=== PATIENT | male | born 1980 | race Caucasian/White ===

== ENCOUNTER 2020-11-23 19:42 | Emergency (ER) | payer OTHER, SELFPAY ==
[2020-11-23 19:43] VITALS: BP 136/74; PULSE 69; RESP 18; TEMP 36.1; O2SAT 99; BMI 27.9
--- NOTE | 2020-11-23 19:55 | ED.VIS.DENTA ---
History of Present Illness Chief Complaint: Dental Informant: Patient Onset: Days Context: Sudden Onset Timing: Continuous Quality: Pain Location: Upper back molar Current Severity: Mild Maximum Severity: Moderate Worsened by: Eating or drinking something cold Relieved by: - - Nothing Associated Symptoms: Fever - Subjective fever last evening, - - Eyes jaw pain or swelling, denies facial pain or swelling. Narrative: Patient a 40-year-old male who presents with dental pain and swelling roof of his mouth . Patient complains of subjective fever last evening. He denies history rheumatic fever, heart murmur, SBE or being immune suppressed. He does not have a dentist. He denies difficulty opening closing his mouth. Denies facial pain, swelling or redness. He denies change in voice. He denies rash or skin lesion. Prior similar symptoms: No Recent Illness/Hospitalization: No - Past Medical History (1) No significant past medical history Status: Acute Past Medical History - Allergies and Home Meds Allergies/Adverse Reactions: Allergies No Known Allergies Allergy (Verified 12/23/14 19:30) Primary Care Physician: Cecilia Sharma,Out of [Primary Care Provider] - Prior records reviewed: No Surgical History: noncontributory Lives: Spouse/ Significant Other, With Family Smoking Status: Current every day smoker Alcohol: Rare Drugs: None Review of Systems General: Reports: Fever, Subjective. Denies: Chills, Malaise, Sweats Eyes: Denies: Visual changes - bilaterally, Blurred Vision - bilaterally, Diplopia ENT: Reports: - - Dental pain and swelling. Denies: Bilateral ear pain, Rhinorrhea, Sore throat Cardiovascular: Denies: Chest pain, Palpitations Respiratory: Denies: Dyspnea, Cough Gastrointestinal: Denies: Nausea, Vomiting Musculoskeletal: Denies: Myalgias, Arthralgias, Neck pain Skin: Denies: Rash Neurological: Denies: Headache, Weakness, Parasthesia Allergy: Reports: Swelling of the mouth. Denies: Uticaria, Swelling of the tongue Physical Exam Vital Signs/Narrative: Vital Signs Temp Pulse Resp BP Pulse Ox 11/23/20 19:43 96.9 F L 69 18 136/74 H 99 Inital Vital Signs reviewed: Yes General: Well nourished Head: Normocephalic, Atraumatic ENT: Moist mucous membranes, Nasal congestion, No nasal trauma, No rhinorrhea. Negative for: Sinus tenderness Mouth/Throat: Normal oral mucosa, Normal posterior oropharynx, No sublingual edema, Normal Stensen's duct, Dental abscess, Focal dental decay, Focal gum swelling, Gingivitis, Tenderness on tooth percussion, - - Decay and swelling at tooth #2 region.. Negative for: Normal inspection lips/gums, No focal abscess, Apthous ulcer, Dental trauma, Trismus Neck: Supple, No lymphadenopathy, Nontender, No JVD. Negative for: Anterior submandibular lymphadenopathy, Posterior submandibular lymphadenopathy, Anterior submental lymphadenopathy, Posterior submental lymphadenopathy Cardiovascular: Regular rate, Regular rhythm, No murmurs, Normal S1, Normal S2 Respiratory: No distress, CTA bilaterally, Chest nontender Skin: Normal color, No rash Neurological: Alert, Oriented x3, Cranial nerves II-XII grossly intact, Normal Strength, Normal Sensation Psychological: Normal affect Diagnostic/Tx/Re-eval - Medical Decision Making Dental decay down to the pulp. There is also evidence of abscess with fistula/sinus tract. Patient received first dose of Naprosyn, [place] and clindamycin. There is no evidence of facial cellulitis. He has no trismus. He was referred to Dr. Rahman since he will need the root extracted. ED Disposition - Plan for ED Patient: Disposition: Home or Assisted Living Diagnosis: Dental abscess, Dental pulp necrosis Instructions: Dental Abscess Prescriptions: Clindamycin HCl [Cleocin] 300 mg PO Q6H #28 capsule Transmission Status: Pending to [id number] Naproxen [Naprosyn] 500 mg PO BID #14 tablet Transmission Status: Pending to [id number] Hydrocodone Bitart/Apap 5-325 [[place] 5MG-325MG] 1 tablet PO Q6H PRN PRN 3 Days #10 tablet PRN Reason: Pain Transmission Status: Received by [id number] Referrals: [facility] Doctor,Out of [Primary Care Provider] - Familia Rahman DDS [STAFF PHYSICIAN] - 5-7 Days
[2020-11-23] MEDS: Naproxen 250 MG Tablet 500 MG PO (20:06)
[2020-11-23] MEDS: Clindamycin HCl 150 MG Capsule 300 MG PO (20:07)
[2020-11-23 20:08] VITALS: RESP 14
== END 2020-11-23 20:10 | disposition home or self-care (01) ==
LOC: ED 20:05
PROVIDERS: Emergency Provider Emergency Medicine
DX: K04.7 Periapical abscess without sinus (principal); K04.1 Necrosis of pulp; F17.200 Nicotine dependence, unspecified, uncomplicated
CPT/HCPCS: 99282

== ENCOUNTER 2021-01-30 12:09 | Emergency (ER) | payer OTHER, SELFPAY ==
[2021-01-30 12:10] VITALS: BP 138/84; PULSE 62; RESP 16; TEMP 36.4; O2SAT 100; BMI 28.9
--- NOTE | 2021-01-30 12:22 | EX.ED.DYSGE1 ---
HPI History of Present Illness Chief Complaint: Allergic Reaction Detail of Chief Complaint: Bilateral hand swelling and itching Informant: patient Onset/Context/Timing Onset: Yesterday Context: Gradual Onset Timing: Continuous Current Severity: Mild Maximum Severity: Mild Narrative Narrative: Gentleman used new clothes. Thinks he had allergic reaction to the material on the glove or something on them. Has developed swelling of his hands since yesterday. Prior similar symptoms: Yes PFSH PFSH Home Medications clindamycin HCl 300 mg PO Q6H #28 capsule 11/23/20 [Rx Last Taken Unknown] naproxen 500 mg PO BID #14 tablet 11/23/20 [Rx Last Taken Unknown] prednisone 40 mg PO DAILY 5 Days #10 tab 01/30/21 [Rx Last Taken Unknown] Allergy/AdvReac Type Severity Reaction Status Date / Time No Known Allergies Allergy Verified 01/30/21 12:10 Social History Smoking Status: Current every day smoker ROS ROS ED ROS Narrative Denies any recent illness. Review of Systems ROS Unobtainable: Denies due to encephalopathy Constitutional Constitutional ED: Denies fever(s) Eyes Eyes: Denies change in vision ENT ENT ED: Denies ear pain or sore throat Cardiovascular Cardiovascular: Denies chest pain Respiratory/Chest Respiratory/Chest: Denies dyspnea Gastrointestinal Gastrointestinal: Denies abdominal pain, diarrhea, nausea or vomiting Genitourinary Genitourinary ED: Denies dysuria Musculoskeletal Musculoskeletal: Denies myalgias Integumentary Reports rash Neurologic Neurologic: Denies headache(s) Psychiatric Psychiatric: Denies depression Endocrine Endocrinology: Denies polyuria Allergic/Immunologic Allergic/Immunologic ED: Denies urticaria EXAM Physical Exam Narrative Exam Narrative: Middle-aged male no acute distress vital signs stable afebrile. HEENT exam normal. Lungs are clear. Heart regular rhythm. Skin unremarkable except both hands are mildly swollen. He does have a ring on his left ring finger. It is not tight. But he cannot get it over the knuckle we tried to remove it were unsuccessful. He does not want to cut off at this time. Hands appear to be allergic reaction. The forearm wrist and upper arms are unremarkable. Const Vital Signs: 01/30/21 12:10 Temperature 97.6 F L Temperature Source Temporal Pulse Rate 62 Respiratory Rate 16 Blood Pressure 138/84 H Blood Pressure Mean 102 Pulse Ox 100 Oxygen Delivery Method Room Air Positive well nourished and well developed General Appearance ED: well developed HEENT Reports moist mucous membranes Negative for trauma or tenderness Eyes PERRL and EOMs intact bilaterally Neck no lymphadenopathy, supple and no JVD Chest Wall inspection of chest normal and palpation of chest normal Cardio regular rate, regular rhythm and no murmurs GI normal to inspection, nondistended, normoactive bowel sounds, non-tender and non-distended Palpation: soft Back/Spine no CVA tenderness Extremity Extremity Narrative: Bilateral hand swelling. General Extremety ED: Yes edema; Negative for tenderness General Extremity: edema Neuro oriented x3 and CN's II-XII intact bilaterally Sensorium / Orientation: alert Motor Exam: strength 5/5 throughout Psych mental status grossly normal Skin no rashes or lesions noted MDM MDM MDM Narrative Medical decision making narrative: Patient be treated with oral prednisone. Prescription for 5 days. First dose given in ER. He knows to get his ring taken off if it gets tight. Ice and elevate his hands. Return if worse. Discharge Plan Triage Chief Complaint: Allergic Reaction ED Provider: Pete Mcnamara Dx/Rx/DC Orders Clinical Impression: Allergic reaction Instructions: ED Allergic Reaction Local Other Prescriptions: New prednisone 20 mg tablet 40 mg PO DAILY 5 Days Qty: 10 RF: 0 No Action clindamycin HCl 300 MG capsule 300 mg PO Q6H Qty: 28 RF: 0 naproxen 500 MG tablet 500 mg PO BID Qty: 14 RF: 0 Primary Care Provider: Care Physician,No Primary Referrals: Juan Bynum MD [STAFF PHYSICIAN] - 3-5 Days if not improving NOT,DEFINED [NON-STAFF] - Activity Restrictions/Additional Instructions: Ice and elevate your hand to decrease pain and swelling. Motrin to decrease swelling. Prednisone daily for the next 5 days. You already given your first dose here for today. You will need to take again tomorrow. Have the ring cut off if it gets too tight. Disposition Disposition: Home, self care
[2021-01-30] MEDS: predniSONE 20 MG Tablet 60 MG PO (12:30)
--- NOTE | 2021-01-30 12:35 | ED.RN ---
small abrasion to posterior left ring finger. physician aware. no treatment here. home treatment discussed with pt.
== END 2021-01-30 12:35 | disposition home or self-care (01) ==
PROVIDERS: Emergency Provider Emergency Medicine
DX: T78.40XA Allergy, unspecified, initial encounter (principal); F17.200 Nicotine dependence, unspecified, uncomplicated; M79.89 Other specified soft tissue disorders
CPT/HCPCS: 99284

== ENCOUNTER 2023-09-24 16:52 | Emergency (ER) | payer OTHER, SELFPAY ==
[2023-09-24 16:53] VITALS: BP 125/79; PULSE 73; RESP 16; TEMP 36.5; O2SAT 99; BMI 25.7
[2023-09-24 17:15] LABS: Absolute Lymphocyte Count 3.47 X10^3/uL (0.83-4.51); Absolute Neutrophil Count 3.4 X10^3/uL (2.0-7.7); Basophil# 0.05 X10^3/uL; Basophil% 0.6 % (0-1); Eosinophil# 0.19 X10^3/uL; Eosinophils% 2.4 % (0-5); Hematocrit 44.4 % (40-54); Lymphocyte # 3.47 X10^3/ul (0.83-4.51); Lymphocyte % 44.7 % (19-41); Mean Corp Hgb Conc 33.8 g/dL (32-36); Mean Corpuscular Hgb 28.7 pg (27.0-32.0); Mean Corpuscular Volume 85.1 fL (80-94); Monocyte# 0.62 X10^3/uL; NRBC Flagged by Analyzer 0 % (0-5); Neutrophil # 3.42 X10^3/uL (2.7-7.7); Neutrophil % 44.2 % (47-70); Platelet Count 241 K/mm3 (150-450); RBC Distribution Width CV 12.5 % (11.6-14.6); RBC Distribution Width SD 38.5 fl (35.1-43.9); Red Blood Count 5.22 M/mm3 (4.6-6.2); White Blood Count 7.8 K/mm3 (4.4-11.0)
[2023-09-24 17:16] VITALS: BP 119/84; PULSE 60; RESP 15; O2SAT 99
--- NOTE | 2023-09-24 17:19 | ED.RN ---
NO OLD EKG
--- NOTE | 2023-09-24 17:33 | ED.VIS.CHEST ---
HPI History of Present Illness Chief Complaint: Chest Pain Detail of Chief Complaint: Accelerated heart rate intermittently for months. Informant: patient Onset/Context/Timing Onset: Today and Hours Activity at onset: gradual Timing: Intermittent Quality: Positive for Dull Location: Substernal Current Severity: Gone Maximum Severity: Mild Worsened By: Nothing Relieved By: Nothing Associated Symptoms: Positive for Acid Reflux and Palpitations; Negative for Nausea, Vomiting, Diaphoresis, Dyspnea, Cough, Fever or Lightheadedness Narrative Narrative: 42-year-old male no significant past medical or surgical history. About a month ago he had both COVID and flu around the same time. Since then he has had intermittent episodes of fluttering heart rate and accelerated heart rate. Today around noon similar episode came on. His heart rate was in the 100s. He had some mild dull chest discomfort associated with it. No prior history of DVT or PE. No leg pain or swelling. No recent travel, surgery or immobilization. No hemoptysis. No cardiac history no thyroid history. He is undergoing outpatient cardiac monitoring but as of yet they have not had any specific diagnosis. Prior Similar Symptoms: Yes Recent Illness/Hospitalization: No CVD Risk Factors: Negative for Hypertension, Diabetes or Hypercholesterolemia PE Risk Factors: Negative for Recent Travel/Surgery, Recent Immobilization, Prior DVT or PE, Cancer or OCP + Smoking + >/=35 TAD Risk Factors: Negative for Marfan's Syndrome PFSH PFSH Medical History no medical history no medical history Home Medications NK 09/24/23 [History Last Taken Unknown] Allergy/AdvReac Type Severity Reaction Status Date / Time No Known Allergies Allergy Verified 01/30/21 12:10 Surgical History no surgical history no surgical history Social History Smoking Status: Former smoker ROS ROS ED ROS Narrative Palpitations. Accelerated heart rate. Review of Systems ROS Unobtainable: Denies due to encephalopathy Constitutional Constitutional ED: Denies chills or fever(s) Eyes Eyes: Reports none ENT ENT ED: Denies ear pain or rhinorrhea Cardiovascular Cardiovascular: Reports chest pain, palpitations and racing heartbeat Respiratory/Chest Respiratory/Chest: Denies cough or dyspnea Gastrointestinal Gastrointestinal: Denies abdominal pain Genitourinary Genitourinary ED: Denies dysuria Musculoskeletal Musculoskeletal: Denies arthralgias Integumentary Denies abscess Neurologic Neurologic: Denies headache(s) or paresthesias Psychiatric Psychiatric: Denies anxiety Endocrine Endocrinology: Denies cold intolerance Hematologic/Lymphatic Hematologic/Lymphatic: Denies easy bleeding, easy bruising or lymphadenopathy Allergic/Immunologic Allergic/Immunologic ED: Denies mouth swelling, tongue swelling or urticaria EXAM Physical Exam Narrative Exam Narrative: 42-year-old male vital signs stable afebrile. Heart rate 70. Pulse ox 99% on room air no signs hypoxia. No distress. present in room. HEENT exam normal. Neck nontender. No thyromegaly. No lymphadenopathy. Lungs clear to auscultation bilaterally. Heart regular rhythm rate about 71 no murmur. Chest wall and ribs nontender. Abdomen soft nontender. Moving all 4 extremities. Calves are nontender without edema or cords. Neurologically is awake and alert with no focal motor deficit. Const Vital Signs: 09/24/23 16:53 09/24/23 17:16 09/24/23 17:16 Temperature 97.7 F L Temperature Source Temporal Pulse Rate 73 60 Respiratory Rate 16 15 Respiratory Effort Blood Pressure 125/79 H 119/84 H Blood Pressure Mean 94 95 Pulse Ox 99 99 99 Oxygen Delivery Method Room Air Room Air 09/24/23 17:17 09/24/23 18:03 09/24/23 19:31 Temperature Temperature Source Pulse Rate 64 54 L Respiratory Rate 14 16 Respiratory Effort Normal Non-Labored Blood Pressure 115/78 118/80 Blood Pressure Mean 90 92 Pulse Ox 96 100 Oxygen Delivery Method Room Air Room Air Positive well nourished and well developed; Negative for obese, cachectic, contractures or unkempt General Appearance ED: well developed and NAD; Negative for unkempt, cachectic, contractures or pallor Nutritional Appearance: Negative for cachectic or obese HEENT Reports moist mucous membranes; Denies dry mucous membranes normocephalic and atraumatic; Negative for trauma or tenderness Mouth ED: No dry mucous membranes Mouth: No dry mucous membranes Eyes PERRL and EOMs intact bilaterally General Eye ED: Negative for pale conjunctiva, scleral icterus or other Neck no lymphadenopathy, supple and no JVD General: Negative for tenderness Chest Wall inspection of chest normal and palpation of chest normal Chest: Negative for tenderness Resp normal respiratory effort and clear to auscultation bilaterally Effort and Inspection: Negative for respiratory distress Auscultation: Negative for rales, rhonchi or wheezes Cardio regular rate, regular rhythm, S1 normal heart sound, S2 normal heart sound and no murmurs Rate: Negative for bradycardia or tachycardic Rhythm: Negative for abnormal rhythm Peripheral Pulses: pulses 2+ throughout GI normal to inspection, nondistended, normoactive bowel sounds, soft to palpation, non-tender, non-distended and no masses Auscultation: Negative for hyperactive bowel sounds Palpation: Negative for splenomegaly or mass Back/Spine no CVA tenderness and no thoracic nor lumbar tenderness General Back: Negative for CVA tenderness Cervical Spine: Negative for cervical spine tenderness Extremity normal to inspection General Extremety ED: Negative for edema, pulses abnormal or tenderness General Extremity: Negative for edema or pulses abnormal Neuro oriented x3 and CN's II-XII intact bilaterally Sensorium / Orientation: awake, alert, oriented to person, oriented to place and oriented to time; Negative for confused, lethargic or stuporous Motor Exam: strength 5/5 throughout; Negative for general weakness or strength abnormal Psych mental status grossly normal Appearance: Negative for unkempt Attitude: No agitated Mood & Affect: Negative for depressed, anxious or tearful Skin no rashes or lesions noted and no wounds General Skin Exam: Negative for jaundice or pallor Rashes: No rashes noted Trauma: Negative for abrasion, laceration or puncture Heart Score History: Slightly/Non-Suspicious ECG: Normal Age: </= 45 years Risk Factors: No Risk Factors Troponin: </= Normal Limit Score: 0 MDM MDM MDM Narrative Medical decision making narrative: 42-year-old male with palpitations, etc. heart rate and atypical nonexertional chest pain after having COVID and flu a month ago. Cardiac workup including D-dimer and TSH. Repeat exam patient doing well at 7:40 PM. We talked about all his test results are basically normal. The D-dimer was elevated but the CTA was normal. He will be discharged home to continue his outpatient workup for palpitations and tachycardia. He meets no criteria for admission at this time. History & Record Review Discussion w/independent historian: Patient and Family Additional record(s) reviewed:: Prior inpatient record, Prior outpatient record and Prior ED visit Lab Data Attestation: I reviewed the patient's lab results. Lab results narrative: CBC normal. White count of 7. H&H 15 and 44. Platelets 241. D-dimer elevated 0.64. CTA of the chest showed no PE. Troponin normal at 4. TSH normal. Chemistries unremarkable gap of 7. Normal BUN and creatinine. Glucose 103. Labs: Laboratory Results - last 24 hr 09/24/23 17:05 WBC 7.8 RBC 5.22 Hgb 15.0 Hct 44.4 MCV 85.1 MCH 28.7 MCHC 33.8 RDW Std Deviation 38.5 RDW Coeff of Juan A 12.5 Plt Count 241 MPV 11.0 Immature Gran % (Auto) 0.100 Neut % (Auto) 44.2 L Lymph % (Auto) 44.7 H Russell % (Auto) 8.0 Eos % (Auto) 2.4 Baso % (Auto) 0.6 Absolute Neuts (auto) 3.4 Absolute Lymphs (auto) 3.47 Nucleated RBC % 0 D-Dimer Quant (PE/DVT) 0.64 H* Sodium 139 Potassium 4.1 Chloride 105 Carbon Dioxide 27.0 Anion Gap 7 BUN 7 Creatinine 0.76 Estim Creat Clear Calc 141.81 Est GFR (MDRD) Af Amer 146 Est GFR (MDRD) Non-Af 121 BUN/Creatinine Ratio 9.3 L Glucose 103 Calcium 9.4 Troponin I High Sens 4 TSH 0.36 Radiography Chest X-Ray - ED: 1 View, Read by ED Physician, Read by Radiologist, Heart, Lungs, Mediastinum, Bony Structures, No Acute Disease and Chronic Changes Diagnostic Testing: Clinical Impression(s) from Imaging Studies Chest X-Ray 09/24/23 17:39 IMPRESSION: No radiographic evidence of acute cardiopulmonary disease. Electronically Signed: Jesus Salinas DO at 18:26 EST , Chest CTA 09/24/23 18:45 IMPRESSION: Normal CTA chest examination, without a demonstrated pulmonary embolism or arterial dissection. Electronically Signed: Jesus Salinas DO at 19:08 EST , Chest x-ray, portable, single view cervical os of radiology shows no acute abnormality. Normal cardiac silhouette. Normal lung escamilla. Cardiac recording device left chest. Rhythm Strip Rhythm Strip: Sinus Rhythm Rate: 76 Ectopy: None EKG Initial EKG: Attestation: I personally reviewed and interpreted this EKG as follows: Interpretation: Sinus Rhythm and No Acute Injury Pattern Comments: Normal sinus rhythm rate of 76 no acute signs of [place] or ischemia. Discharge Plan Triage Chief Complaint: Chest Pain ED Provider: Pete Mcnamara Dx/Rx/DC Orders Clinical Impression: Tachycardia, Chest pain Instructions: ED Chest Pain, Uncertain Cause Prescriptions: No Action NK Primary Care Provider: Brittany Castillo NP Referrals: Sonali Kamara MD [Med Staff - Active Staff] - As soon as possible Care Physician,No Primary [Non-Staff] - Brittany Castillo NP, [employer] [Primary Care Provider] - As Needed Activity Restrictions/Additional Instructions: Your labs EKG and CAT scan were all unremarkable. No blood clots. No signs of heart attack. Follow-up with cardiology for further evaluation. Disposition Disposition: Home, Self Care
--- NOTE | 2023-09-24 17:39 | RAD_ITS ---
INDICATION: chest pain EXAMINATION/TECHNIQUE: X-RAY - XR Chest 1 View COMPARISON: FINDINGS: LINES/DEVICES: None. LUNGS: No consolidation, edema or effusion. No pneumothorax. MEDIASTINUM AND CARDIOVASCULAR STRUCTURES: Cardiac silhouette not enlarged. Central airways and mediastinal contour are unremarkable. BONES AND SOFT TISSUES: Unremarkable. RAD/Chest 1 View (Portable) IMPRESSION: No radiographic evidence of acute cardiopulmonary disease. Electronically Signed: Jesus Salinas DO at 18:26 EST Reading Location ID and State: [facility] / [place] Tel [phone], Service support ,
[2023-09-24 17:42] LABS: Anion Gap 7 (5-15); BUN 7 mg/dL (7-18); BUN/Creat Ratio 9.3 RATIO (10-20); Calcium,Total 9.4 mg/dL (8.5-10.1); Chloride 105 mmol/L (98-107); Creatinine, Serum 0.76 mg/dL (0.70-1.30); EST Glomerular Filtration Rate 121 mL/min (>60); Est Glom Filt Rate - Afr Amer 146 mL/min (>60); Estimated Creatinine Clearance 141.81 ml/min; Glucose 103 mg/dL (74-106); Potassium 4.1 mmol/L (3.5-5.1); Sodium Level 139 mmol/L (136-145); Troponin-I HS (w/2H Reflex) 4 pg/mL (3.0-78.0)
[2023-09-24 18:03] VITALS: BP 115/78; PULSE 64; RESP 14; O2SAT 96
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
[2023-09-24 18:14] LABS: D-Dimer Quantitative (DVT/PE) 0.64 FEU/ug/m (0.27-0.49)
[2023-09-24 18:15] LABS: Thyroid Stim Hormone (TSH) 0.36 uIU/mL (0.358-3.74)
--- NOTE | 2023-09-24 18:45 | CT_ITS ---
STUDY: CTA CHEST REASON FOR EXAM: Male, 42 years old. dyspnea and elevated d-dimer RADIATION DOSAGE (If Supplied By Facility): CTDIvol = ( 16.95 ) mGy, DLP = ( 352.08 ) mGycm TECHNIQUE: The examination was performed with the intravenous administration of IV 100mL Isovue-370. Post-processing of the angiographic images was performed, with multiplanar reformation and 3D reconstruction. Individualized dose optimization techniques were used for this CT. COMPARISON: FINDINGS: Normal enhancement of the main pulmonary artery and right and left pulmonary arteries. Normal enhancement of the bilateral peripheral pulmonary arteries. There is no demonstrated pulmonary embolism. Normal thoracic aorta and visualized great vessels. There is no demonstrated aortic dissection. Normal heart and pericardium. Normal mediastinum. Normal hilar regions. Normal visualized trachea and bronchi. The lungs are well expanded. Normal pulmonary parenchyma. Normal pleura. Normal chest wall structures. Normal osseous structures. Normal visualized upper abdomen. CT/CTA Chest W/WO Contrast IMPRESSION: Normal CTA chest examination, without a demonstrated pulmonary embolism or arterial dissection. Electronically Signed: Jesus Salinas DO at 19:08 EST Reading Location ID and State: [facility] / [place] Tel [phone], Service support ,
[2023-09-24 19:12] LABS: Reflex Troponin-HS? (from REC) Y
[2023-09-24 19:31] VITALS: BP 118/80; PULSE 54; RESP 16; O2SAT 100
[2023-09-24 19:48] VITALS: BP 118/80
[2023-09-24 20:00] LABS: Troponin-I HS 4 pg/mL (3.0-78.0)
== END 2023-09-24 19:48 | disposition home or self-care (01) ==
PROVIDERS: Emergency Provider Emergency Medicine; PCP Registered Nurse; Visit Provider Emergency Medicine
DX: R00.0 Tachycardia, unspecified (principal); R07.9 Chest pain, unspecified; Z87.891 Personal history of nicotine dependence; Z86.16 Personal history of COVID-19
CPT/HCPCS: 71045; 71275; 80048; 84443; 84484; 85025; 85379; 93005; 99284; Q9967; A4216

== ENCOUNTER → 2023-11-29 | Outpatient (CLI) | payer OTHER, SELFPAY ==
[2023-11-29 12:23] LABS: Erythrocyte Sedimentation Rate 3 mm/hr (0-20)
[2023-11-29 12:42] LABS: Vitamin B12 897 pg/mL (211-911); Vitamin D,25 Hydroxy 12.2 ng/mL
[2023-11-29 12:43] LABS: CRP < 2.90 mg/L (0.0-3.0)
[2023-11-30 13:08] LABS: ANTINUCLEAR ANTIBODIES DIRECT Negative (Negative); Anti-Centromere B Ab <0.2 AI (0.0-0.9); Anti-Chromatin <0.2 AI (0.0-0.9); Anti-Jo <0.2 AI (0.0-0.9); Anti-Scleroderma-70 AB <0.2 AI (0.0-0.9); Anti-dsDNA Ab 1 IU/mL (0-9); RNP Ab 0.2 AI (0.0-0.9); SJOGREN'S Anti-SS-A test < 0.2 AI (0.0-0.9); SJOGREN'S Anti-SS-B test < 0.2 AI (0.0-0.9); Smith Ab <0.2 AI (0.0-0.9)
== END | disposition home or self-care (01) ==
PROVIDERS: PCP Internal Medicine; Referring Provider Internal Medicine; Visit Provider Internal Medicine
DX: R00.2 Palpitations (principal); R20.0 Anesthesia of skin; R20.2 Paresthesia of skin
CPT/HCPCS: 36415; 82306; 82607; 85652; 86038; 86140; 86225; 86235

== ENCOUNTER 2024-08-07 15:58 | Emergency (ER) | payer OTHER, SELFPAY ==
[2024-08-07 15:59] VITALS: BP 129/85; PULSE 63; RESP 17; TEMP 36.7; O2SAT 100; BMI 30.6
--- NOTE | 2024-08-07 16:24 | EX.ED.DYSGE1 ---
HPI History of Present Illness Chief Complaint: Cold Sx Informant: patient and spouse/S.O. Narrative Narrative: 43-year-old male presenting to the emergency room with a chief complaint of cough. Patient states for the past 2 weeks he has had a cough rhinorrhea lower than normal voice sinus pressure and headache with coughing. He notes myalgias and feeling poorly. He is a non-smoker. No known lung conditions. He denies any rashes vomiting or diarrhea. PFSH PFSH Medical History A-fib Asthma Home Medications ?Medication ?Instructions ?Recorded ?Last Taken ?Type cholecalciferol (vitamin D3) 1,250 1,250 mcg PO QWEEK #8 caps 11/29/23 Unknown Rx mcg (50,000 unit) capsule methylprednisolone 4 mg tablets in See Rx Instructions PO PER PKG DIR 07/21/24 Unknown Rx a dose pack (Medrol (Jesus)) #21 tabs tobramycin 0.3 % eye drops 1 drp ophthalmic (eye) Q2H #5 mL 07/21/24 Unknown Rx amoxicillin 875 mg-potassium 875 mg PO Q12H #20 TABLETS 08/07/24 Unknown Rx clavulanate 125 mg tablet Allergy/AdvReac Type Severity Reaction Status Date / Time No Known Allergies Allergy Verified 08/07/24 15:59 Family History Father Hypertension Myocardial infarction Cancer brain and lung Alcoholism Uncle Heart disease Mother Hypertension Anxiety Aunt Heart disease Surgical History No pertinent past surgical history Social History adopted: No household members: spouse and children number of children: 2 current occupational status: employed current occupation: [employer] pets and animals: Yes pets and animals: dog(s), bird(s) and iguana(s) Smoking Status: Former smoker quit date: 08/27/20 pack-years: 21 Tobacco: How many years used: 21 Electronic Cigarette Use: with nicotine and not used alcohol intake: current alcohol intake frequency: a few times a week substance use type: does not use caffeine: Yes (2) Type: other frequency: daily do you feel safe at home: Yes ROS ROS ED Constitutional Constitutional ED: Reports fever(s) and subjective; Denies chills or weight loss Eyes Eyes: Denies change in vision or diplopia ENT ENT ED: Reports rhinorrhea, sore throat and other Details: Hoarse deeper voice ; Denies ear pain Cardiovascular Cardiovascular: Denies chest pain, orthopnea, palpitations or racing heartbeat Respiratory/Chest Respiratory/Chest: Reports cough; Denies dyspnea or orthopnea Gastrointestinal Gastrointestinal: Denies abdominal pain, diarrhea, nausea or vomiting Genitourinary Genitourinary ED: Denies dysuria, hematuria or urinary frequency Musculoskeletal Musculoskeletal: Reports myalgias; Denies arthralgias Integumentary Denies abscess or rash Neurologic Neurologic: Denies headache(s) or weakness Psychiatric Psychiatric: Denies anxiety, depression, suicidal ideation or suicidal thoughts Endocrine Endocrinology: Denies polydipsia, polyphagia or polyuria Allergic/Immunologic Allergic/Immunologic ED: Denies mouth swelling, tongue swelling or urticaria EXAM Physical Exam Const Vital Signs: 08/07/24 15:59 08/07/24 16:20 08/07/24 17:22 Temperature 98.1 F 97.9 F Temperature Source Oral Pulse Rate 63 68 Respiratory Rate 17 16 Respiratory Effort Normal Non-Labored Respiratory Pattern Normal Blood Pressure 129/85 H 120/80 Blood Pressure Mean 99 93 Pulse Ox 100 97 Oxygen Delivery Method Room Air Positive well nourished and well developed General Appearance ED: well developed HEENT Reports normocephalic, head/scalp atraumatic and moist mucous membranes HEENT Narrative: Turbinate edema evidence of postnasal drip tympanic membrane's appear normal voice is deep and gravelly Eyes PERRL and EOMs intact bilaterally Neck no lymphadenopathy, supple and no JVD Resp normal respiratory effort and clear to auscultation bilaterally Cardio regular rate, regular rhythm and no murmurs GI normal to inspection, nondistended, normoactive bowel sounds and non-tender Palpation: soft Back/Spine no CVA tenderness and normal ROM Extremity normal to inspection General Extremety ED: Negative for edema General Extremity: Negative for edema Neuro oriented x3 and CN's II-XII intact bilaterally Sensorium / Orientation: alert Motor Exam: strength 5/5 throughout Psych mental status grossly normal Mood & Affect: Negative for depressed or tearful Skin no rashes or lesions noted and no wounds MDM MDM MDM Narrative Medical decision making narrative: Differential diagnosis includes sinusitis viral URI laryngitis bronchitis pneumonia otitis media My independent interpretation of the chest x-ray is no acute infiltrate. No pleural effusion is noted. As it has been 2 weeks and the patient is having headaches postnasal drip persistent cough think it is reasonable to trial an antibiotic. 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 Going to use Augmentin at this time. Patient will follow-up return if worsening or concerns. History & Record Review Discussion w/independent historian: Patient Radiography Diagnostic Testing: Clinical Impression(s) from Imaging Studies Chest X-Ray 08/07/24 16:25 IMPRESSION: No radiographic evidence of acute cardiopulmonary disease. Electronically Signed: Blane Boyd MD at 17:02 EST Reading Location ID and State: [facility] / [place] Tel , Service support , Discharge Plan Triage Chief Complaint: Cold Sx ED Provider: Darrel Ferrera Dx/Rx/DC Orders Clinical Impression: Sinusitis, Cough Instructions: ED Sinusitis (Antibiotic Treatment) Prescriptions: New amoxicillin-pot clavulanate 875-125 mg tablet 875 mg PO Q12H Qty: 20 0RF No Action tobramycin 0.3 % drops 1 drp ophthalmic (eye) Q2H Qty: 5 0RF Rx Instructions: to affected eye while awake first 24 hours, then 3x/day on days 2-5 methylprednisolone [Medrol (Jesus)] 4 mg tablets,dose pack See Rx Instructions PO PER PKG DIR Qty: 21 0RF Rx Instructions: PO PER PKG DIR cholecalciferol (vitamin D3) 1,250 mcg (50,000 unit) capsule 1,250 mcg PO QWEEK Qty: 8 0RF Primary Care Provider: Mayra Tidwell Referrals: Mayra Tidwell MD [Primary Care Provider] - 1 Week if not improving Print Language: Danish Disposition Disposition: Home, Self Care Discharge Date/Time: 08/07/24 17:22
--- NOTE | 2024-08-07 16:25 | RAD_ITS ---
INDICATION: cough EXAMINATION/TECHNIQUE: X-RAY - portable upright AP chest x-ray COMPARISON: 09/24/2023 FINDINGS: LINES/DEVICES: None. LUNGS: No consolidation, edema or effusion. No pneumothorax. MEDIASTINUM AND CARDIOVASCULAR STRUCTURES: Cardiac silhouette not enlarged. Central airways and mediastinal contour are unremarkable. BONES AND SOFT TISSUES: No acute findings. RAD/Chest 1 View (Portable) IMPRESSION: No radiographic evidence of acute cardiopulmonary disease. Electronically Signed: Blane Boyd MD at 17:02 EST ,
[2024-08-07 17:22] VITALS: BP 120/80; PULSE 68; RESP 16; TEMP 36.6; O2SAT 97
== END 2024-08-07 17:22 | disposition home or self-care (01) ==
PROVIDERS: Emergency Provider Emergency Medicine; PCP Internal Medicine; Referring Provider Emergency Medicine; Visit Provider Emergency Medicine
DX: J32.9 Chronic sinusitis, unspecified (principal); R05.9 Cough, unspecified; Z87.891 Personal history of nicotine dependence
CPT/HCPCS: 71045; 99282; A4216

== ENCOUNTER 2024-10-31 08:50 | Emergency (ER) | payer MEDICAID, SELFPAY ==
[2024-10-31 08:51] VITALS: BP 140/87; PULSE 64; RESP 15; TEMP 36.7; O2SAT 100; BMI 30.1
[2024-10-31] MEDS: Penicillin Vk 250 MG Tablet 500 MG PO (10:12)
[2024-10-31] MEDS: Bupivacaine 0.5%/Epi 1.8 ML Syringe INFILT (10:13)
--- NOTE | 2024-10-31 10:18 | ED.VIS.DENTA ---
HPI History of Present Illness Chief Complaint: Dental Informant: patient Narrative Narrative: Patient is a 44-year-old male with history of tobacco use (quit 3 years ago) and recurrent dental infection/poor dentition presenting with 1 week of worsening left upper jaw pain and swelling. He suspects he has dental abscess. Is not sure if he has had associated fever. States he travels a lot for work and has not been able to take time off to see a dentist in the last few years. Is now having pain that is radiating down his neck and into his jaw. When asked if he is had a fever he says he is not sure but probably. Has been taking ibuprofen and Tylenol at home with no relief of his symptoms. States warm compresses sometimes help but any extremes of temperature in his mouth hurt. Denies any acute onset of the pain or cracking a tooth. Questions obese had some intermittent drainage. No other complaints or concerns reported at this time. Denies any difficulty swallowing or breathing. No change in hearing appreciated. [facility] Medical History A-fib Asthma Home Medications ?Medication ?Instructions ?Recorded ?Last Taken ?Type cholecalciferol (vitamin D3) 1,250 1,250 mcg PO QWEEK #8 caps 11/29/23 Unknown Rx mcg (50,000 unit) capsule methylprednisolone 4 mg tablets in See Rx Instructions PO PER PKG DIR 07/21/24 Unknown Rx a dose pack (Medrol (Jesus)) #21 tabs tobramycin 0.3 % eye drops 1 drp ophthalmic (eye) Q2H #5 mL 07/21/24 Unknown Rx amoxicillin 875 mg-potassium 875 mg PO Q12H #20 TABLETS 08/07/24 Unknown Rx clavulanate 125 mg tablet hydrocodone-acetaminophen 5-325mg 1 tab PO Q8H PRN pain 3 days #10 10/31/24 Unknown Rx 5mg-325mg tabs penicillin V potassium 500 mg 500 mg PO 4X/DAY #40 tabs 10/31/24 Unknown Rx tablet Allergy/AdvReac Type Severity Reaction Status Date / Time No Known Allergies Allergy Verified 10/31/24 08:52 Family History Father Hypertension Myocardial infarction Cancer brain and lung Alcoholism Uncle Heart disease Mother Hypertension Anxiety Aunt Heart disease Surgical History No pertinent past surgical history Social History adopted: No household members: spouse and children number of children: 2 current occupational status: employed current occupation: [employer] pets and animals: Yes pets and animals: dog(s), bird(s) and iguana(s) Smoking Status: Former smoker quit date: 08/27/20 pack-years: 21 Tobacco: How many years used: 21 Electronic Cigarette Use: with nicotine and not used alcohol intake: current alcohol intake frequency: a few times a week substance use type: does not use caffeine: Yes (2) Type: other frequency: daily do you feel safe at home: Yes ROS ROS ED Constitutional Constitutional ED: Denies chills or fever(s) Eyes Eyes: Denies change in vision ENT ENT ED: Reports other Details: Left jaw swelling, left upper dental pain ; Denies sore throat Respiratory/Chest Respiratory/Chest: Denies cough or dyspnea Gastrointestinal Gastrointestinal: Denies vomiting Integumentary Denies rash EXAM Physical Exam Const Vital Signs: 10/31/24 08:51 Temperature 98.1 F Temperature Source Temporal Pulse Rate 64 Respiratory Rate 15 Blood Pressure 140/87 H Blood Pressure Mean 104 Pulse Ox 100 Oxygen Delivery Method Room Air Positive well nourished and well developed Constitutional Narrative: Mildly uncomfortable appearing but no acute distress General Appearance ED: well developed HEENT Reports TM's clear HEENT Narrative: Normal oropharynx. Normal nasal exam. No trismus. Normal phonation. Patient has multiple eroded and decayed teeth especially in the molars. There is relatively large dental abscess noted in the left gumline where the second/third molar should be. No active drainage at this time but there is associated fluctuance. Is tender to palpation. There is mild swelling at the left angle of the mandible. Tympanic Membrane ED: Yes TM's clear Eyes PERRL and EOMs intact bilaterally Neck supple Neck Narrative: Mild left anterior cervical chain lymphadenopathy present. Chest Wall inspection of chest normal Resp normal respiratory effort Cardio regular rate and regular rhythm Neuro oriented x3 Sensorium / Orientation: alert Motor Exam: Negative for general weakness Psych mental status grossly normal Skin no rashes or lesions noted and no wounds MDM MDM MDM Narrative Medical decision making narrative: Patient evaluated for 1 week of increased left dental pain and swelling. On clinical exam patient has dental abscess around approximately tooth 15 and where to 16 would be. There are multiple caries teeth as well. Will anesthetize the area and perform I&D to the abscess. Will start on antibiotics (Pen-Vee K) and give first dose in the emergency room. Will give patient referral sheet. Counseled importance of outpatient dental follow-up for his dental health and to stop the recurrence of these abscesses/infections. Differential includes is not limited to dental abscess, dental caries. Exam not consistent with Jerson's angina. Procedure note Area anesthetized with bupivacaine using posterior inferior alveolar block. Once adequate analgesia is achieved #11 blade used to make 3 separate stab incisions until pocket of fluctuant drainage is found. Small amount of additional bupivacaine injected at the site of fluctuance. Patient tolerated procedure well with no immediate complications. Bleeding controlled with direct pressure with gauze. Discharge Plan Triage Chief Complaint: Dental ED Provider: Sondra Zhou Dx/Rx/DC Orders Clinical Impression: Abscess, dental Instructions: ED Dental Abscess Prescriptions: New penicillin V potassium 500 mg tablet 500 mg PO 4X/DAY Qty: 40 0RF hydrocodone-acetaminophen 5-325 mg tablet 1 tab PO Q8H PRN (Reason: pain) 3 Days Qty: 10 0RF No Action tobramycin 0.3 % drops 1 drp ophthalmic (eye) Q2H Qty: 5 0RF Rx Instructions: to affected eye while awake first 24 hours, then 3x/day on days 2-5 methylprednisolone [Medrol (Jesus)] 4 mg tablets,dose pack See Rx Instructions PO PER PKG DIR Qty: 21 0RF Rx Instructions: PO PER PKG DIR amoxicillin-pot clavulanate 875-125 mg tablet 875 mg PO Q12H Qty: 20 0RF cholecalciferol (vitamin D3) 1,250 mcg (50,000 unit) capsule 1,250 mcg PO QWEEK Qty: 8 0RF Primary Care Provider: Mayra Tidwell Referrals: Mayra Tidwell MD [Primary Care Provider] - Activity Restrictions/Additional Instructions: Please follow-up with a dentist. He been given our dental referral sheet. Take antibiotics as prescribed. Print Language: Turkish Disposition Disposition: Home, Self Care
== END 2024-10-31 11:06 | disposition home or self-care (01) ==
PROVIDERS: Emergency Provider Emergency Medicine; PCP Internal Medicine; Visit Provider Emergency Medicine
DX: K04.7 Periapical abscess without sinus (principal); Z87.891 Personal history of nicotine dependence; K02.9 Dental caries, unspecified; J45.909 Unspecified asthma, uncomplicated
CPT/HCPCS: 10060; 99282